=== PATIENT | female | born 1980 | race Caucasian/White ===

== ENCOUNTER 2019-11-28 06:27 | Emergency (ER) | payer OTHER, SELFPAY ==
--- NOTE | ~2019-11-28 | CT_ITS ---
EXAMINATION: CT abdomen pelvis w con DATE: 11/28/2019 07:36 INDICATION: Left lower abdominal pain. TECHNIQUE: Computed tomography (CT) of the abdomen and pelvis was performed with 100 mL Omnipaque-350 intravenous contrast. Automated exposure control and iterative reconstruction technique were employe d. The dose-length product was 1177.12 mGy-cm. COMPARISON: None FINDINGS: Mild dependent atelectasis in the bilateral lower lobes. This is normal. No pericardial or pleural ef fusion. 1.1 cm hypodense lesion in the right hepatic lobe. Gallbladder, spleen, pancreas, bilateral a drenal glands and left kidney are normal. 8 mm right renal cyst. Small bowel and appendix are normal. There is inflammatory stranding surrounding an ovoid region of fat along the anterior margin of the distal descending colon most consistent with epiploic appendagitis. Mild diverticulosis including a c ouple adjacent diverticula but without associated wall thickening or adjacent inflammatory stranding to suggest diverticulitis. Bladder is normal. The uterus is not identified and has likely been surgic ally resected. 1.9 cm peripherally enhancing likely corpus luteum cyst at the left ovary. Likely tu bal ligation clip along side the normal right ovary. There is additional likely tubal ligation clip i n the cul-de-sac along with a small amount of likely physiologic free fluid. No free intraperitoneal gas. No pathologically enlarged abdominal or pelvic lymphadenopathy. Mild thoracolumbar spondylosis. IMPRESSION: 1. Epiploic appendagitis. Differential includes significantly less likely diverticulitis. 2. 1.9 cm likely corpus luteum cyst at the left ovary with small amount of likely physiologic free fl uid in the pelvis. 3. 1.1 cm hypodense right greater than fluid density lesion in the right hepatic lobe which in the ab sence of known liver disease or prior malignancy is most likely benign. Recommend pre and postcontras t MRI for further evaluation. Reviewed, dictated and finalized at location A. IMPRESSION: 1. Epiploic appendagitis. Differential includes significantly less likely diver ticulitis. 2. 1.9 cm likely corpus luteum cyst at the left ovary with small amount of like ly physiologic free fluid in the pelvis. 3. 1.1 cm hypodense right greater than fluid density lesion in the right hepati c lobe which in the absence of known liver disease or prior malignancy is most likely benign. Recommend pre and postcontrast MRI for further evaluation.
[2019-11-28 06:30] VITALS: BP 138/91; PULSE 95; RESP 17; TEMP 36.4; O2SAT 100
[2019-11-28 06:52] LABS: Basophils Percent Auto 0.3 % (0.2-1.2); Eosinophils Absolute Auto 0.4 K/mm3 (0-0.3); Eosinophils Percent Auto 3.7 % (0-4.4); Hematocrit 40.4 % (37.0-47.0); Hemoglobin 13.9 g/dL (12.0-15.0); Immature Granulocyte Absolute 0.06 K/mm3 (0.00-0.031); Immature Granulocyte Percent A 0.5 % (0-0.5); Lymphocytes Absolute Auto 2.86 K/mm3 (0.9-3.2); Lymphocytes Percent Auto 24.4 % (18.3-44.2); Mean Corpuscular HGB Conc 34.4 g/dl (32-36); Mean Corpuscular Hemoglobin 31.4 pg (26-34); Mean Corpuscular Volume 91.2 fl (80-100); Mean Platelet Volume 9.4 fl (7.4-10.4); Monocytes Absolute Auto 0.8 K/mm3 (0.1-0.6); Monocytes Percent Auto 6.9 % (2.6-8.5); Neutrophils Absolute Auto 7.5 K/mm3 (1.3-6.7); Neutrophils Percent Auto 64.2 % (45.5-73.1); Platelet Count Result 307 k/mm3 (150-375); Red Blood Count 4.43 M/mm3 (4.2-5.4); Red Cell Distribution Width 12.7 % (11.5-14.5); White Blood Count 11.7 K/mm3 (4.5-10.0)
[2019-11-28 06:55] LABS: Add Urine Microscopic? NO; Appearance Urine Clear (Clear); Bilirubin Urine Negative (Negative); Blood Urine Negative (Negative); Color Urine Yellow (Yellow); Glucose Urine UA Negative (Negative); Ketones Urine Negative (Negative); Leukocyte Esterase Ur Negative LEU/UL (Negative); Nitrate Urine Negative (Negative); Protein Urine Negative (Negative); Specific Grav Ur 1.014 (1.001-1.035); Urobilinogen Urine Negative mg/dL (<2.0)
[2019-11-28 07:09] LABS: Alanine Aminotransferase 21 U/L (4-35); Albumin Level 4.6 g/dL (3.5-5.1); Alkaline Phosphatase 63 U/L (38-126); Anion Gap 12 mmol/L (8-16); Aspartate Amino Transferase 21 U/L (14-36); Bilirubin,Total 0.8 mg/dL (0.2-1.3); Blood Urea Nitrogen 10 mg/dL (7-17); Calcium 9.5 mg/dL (8.4-10.2); Carbon Dioxide 24 mmol/L (22-30); Chloride 100 mmol/L (98-107); Estimated Glomerular Filt Rate > 60; Glucose 144 mg/dL (65-105); Lipase 103 U/L (23-300); Potassium 3.6 mmol/L (3.4-5.0); Sodium 136 mmol/L (137-145)
--- NOTE | 2019-11-28 07:19 | ED.ABDPAIN ---
HPI - Abdominal Pain General Chief Complaint: Abdominal Pain Stated Complaint: Abd pain Time Seen by Provider: 11/28/19 07:05 Source: patient Mode of arrival: ambulatory Limitations: no limitations History of Present Illness HPI narrative: This patient is a 39 year old female who presents for evaluation of left lower abdominal pain. This pain started yesterday morning and it has been constant. She thought she was constipated so she increased her water intake and took a laxative. Her pain has not resolved so she has come to ER. She denies associated nausea, vomiting, fever or chills. HEr pain seems to worse with movement. MD elicited complaint: abdominal pain Onset (ago): day(s) (1) Pain Consistency: constant Location: LLQ Pain scale (0-10): 6 Migration to: no migration Relieving factors: movement Related Data Allergies Allergy/AdvReac Type Severity Reaction Status Date / Time No Known Allergies Allergy Mild Unverified 11/28/19 06:33 Review of Systems Review of Systems: All systems reviewed & are unremarkable except as noted in HPI and below Constitutional: Constitutional: Denies chills and Denies fever(s) Gastrointestinal: Gastrointestinal: Reports abdominal pain, Denies diarrhea, Denies nausea and Denies vomiting Genitourinary: Genitourinary: Denies hematuria, Denies dysuria and Denies flank pain Musculoskeletal: Musculoskeletal: Denies back pain [facility] Past Medical History Medical History (Updated 11/28/19 @ 08:55 by Comfort Rodrigez MD) Depression Surgical History Surgical History (Updated 11/28/19 @ 07:20 by Comfort Rodrigez MD) History of hysterectomy Social History Social History (Updated 11/28/19 @ 07:20 by Comfort Rodrigez MD) Smoking status: Never smoker Alcohol intake: never Exam Const: General: no acute distress and alert Orientation/consciousness: patient oriented x3 HENMT: Head: normocephalic and atraumatic Face and sinus: face symmetric Eyes: EOM: EOMs intact bilaterally Chest: Chest palpation & inspection: normal inspection of the chest Resp: Effort & Inspection: normal respiratory effort and no retractions Auscultation: clear to auscultation bilaterally Cardio: Rate: regular rate Rhythm: regular rhythm Heart sounds: no murmurs GI: GI Palp: Yes Soft to palpation, Yes Tenderness to palpation present (GI) (LLQ), No Guarding due to palpation present (GI), No Rigid due to palpation and No Hernia present : General: Yes no CVA tenderness Skin: General skin exam: normal color Rashes: no rashes Neuro: General: patient oriented x3 and moves all extremities Extrem: General: normal to inspection Psych: Mental Status: mental status grossly normal Affect: normal affect Course Reevaluation(s) Reevaluation #1: I discussed with patient CT scan shows more than likely epiploic appendagities but they state possible diverticulitis. She does have mildly elevated wbc so will discharge on antibiotics. Date: 11/28/19 Time: 08:53 Vital Signs Vital signs: Vital Signs Temperature 97.6 F 11/28/19 06:30 Pulse Rate 95 11/28/19 06:30 Respiratory Rate 17 11/28/19 06:30 Blood Pressure 138/91 H 11/28/19 06:30 Pulse Oximetry 100 11/28/19 06:30 Temperature 97.6 F 11/28/19 06:30 Pulse Rate 95 11/28/19 06:30 Respiratory Rate 17 11/28/19 06:30 Blood Pressure 138/91 H 11/28/19 06:30 Pulse Oximetry 100 11/28/19 06:30 MDM - Abdominal Pain Lab Data Attestation: I reviewed the patient's lab results. Result diagrams: 11/28/19 06:42 11/28/19 06:42 Labs: Lab Results 11/28/19 11/28/19 11/28/19 Range/Units 06:42 06:42 06:46 WBC 11.7 H (4.5-10.0) K/mm3 RBC 4.43 (4.2-5.4) M/mm3 Hgb 13.9 (12.0-15.0) g/dL Hct 40.4 (37.0-47.0) % MCV 91.2 (80-100) fl MCH 31.4 (26-34) pg MCHC 34.4 (32-36) g/dl RDW 12.7 (11.5-14.5) % Plt Count 307 (150-375) k/mm3 MPV 9.4 (7.4-10
[2019-11-28] MEDS: LACTATED RINGERS 1,000 ML 999 ML IV CONT (07:27)
== END 2019-11-28 09:05 | disposition home or self-care (01) ==
PROVIDERS: Emergency Medicine; Emergency Provider General Practice; PCP Internal Medicine
DX: K63.89 Other specified diseases of intestine (principal); K57.92 Diverticulitis of intestine, part unspecified, without perforation or abscess without bleeding; N83.202 Unspecified ovarian cyst, left side; K76.9 Liver disease, unspecified
CPT/HCPCS: 36415; 74177; 80053; 81003; 81025; 83690; 85025; 96361; 96374; 99284; J0131; J7120; Q9967

== ENCOUNTER 2022-07-20 09:30 | Outpatient (CLI) | payer OTHER, SELFPAY ==
--- NOTE | ~2022-07-20 | MM_ITS ---
EXAMINATION: MM screening sherry BI w candelario HISTORY: Screening mammogram TECHNIQUE: Craniocaudal and mediolateral oblique 3-D tomosynthesis images were obtained and synthetic 2-D images were generated. CAD analysis was submitted and interpreted. COMPARISON: None, baseline BREAST PARENCHYMAL COMPOSITION: The breasts are heterogeneously dense, which may obscure small masses . FINDINGS: RIGHT BREAST: No suspicious mass, calcification, or architectural distortion are identified to sugges t malignancy. LEFT BREAST: An asymmetry is present in the middle third of the upper breast 6 cm from the nipple on the mediolateral oblique view. IMPRESSION: 1. Left breast asymmetry. 2. Additional mammographic views and possible breast ultrasound are recommended. BI-RADS Category 0: Incomplete: Needs additional imaging evaluation. Reviewed, dictated and finalized at location A. IMPRESSION: 1. Left breast asymmetry. 2. Additional mammographic views and possible breast ultrasound are recommended . BI-RADS Category 0: Incomplete: Needs additional imaging evaluation.
== END 2022-07-20 09:31 | disposition home or self-care (01) ==
LOC: ANHIMG 09:31
PROVIDERS: PCP Internal Medicine; Visit Provider Obstetrics & Gynecology
DX: Z12.31 Encounter for screening mammogram for malignant neoplasm of breast (principal); R92.8 Other abnormal and inconclusive findings on diagnostic imaging of breast
CPT/HCPCS: 77063; 77067

== ENCOUNTER 2022-08-07 11:14 | Outpatient (CLI) | payer OTHER, SELFPAY ==
--- NOTE | ~2022-08-07 | MMUS_ITS ---
EXAMINATION: MM diagnostic sherry LT w candelario, US breast LT limited HISTORY: Left breast asymmetry on screening mammogram TECHNIQUE: Additional 3-D tomosynthesis images of the left breast were performed and synthetic 2-D im ages were generated. CAD analysis was submitted and interpreted. High resolution limited left breast ultrasound was performed. COMPARISON: 07/20/2022 FINDINGS: MAMMOGRAPHIC FINDINGS: A persistent asymmetry is present in the upper outer quadrant of the left breast. No suspicious calci fication or architectural distortion are identified. ULTRASOUND: There is a 12 mm x 4 mm oval, circumscribed, parallel, hypoechoic mass with posterior acoustic enhanc ement and no internal vascularity at the 2:00 location, 5 cm from the nipple. A 7 mm x 3 mm mass with similar sonographic features is present at the 11:00 location, 2 cm from the nipple. A 6 mm mass at the 2:00 location, 4 cm from the nipple has the appearance of an intramammary lymph node. IMPRESSION: 1. Probably benign left breast masses and left breast asymmetry. 2. Recommend 6 month follow-up left diagnostic mammogram and ultrasound. BI-RADS category 3, probably benign findings. Reviewed, dictated and finalized at location A. IMPRESSION: 1. Probably benign left breast masses and left breast asymmetry. 2. Recommend 6 month follow-up left diagnostic mammogram and ultrasound. BI-RADS category 3, probably benign findings.
== END 2022-08-07 11:15 | disposition home or self-care (01) ==
LOC: ANHIMG 11:15
PROVIDERS: PCP Internal Medicine; Visit Provider Obstetrics & Gynecology
DX: R92.8 Other abnormal and inconclusive findings on diagnostic imaging of breast (principal)
CPT/HCPCS: 76642; 77061; 77065; G0279